=== PATIENT | female | born 1970 | race Caucasian/White ===

== ENCOUNTER 2017-11-11 14:00 | Outpatient (RCR) | payer BC, OTHER, SELFPAY | END 2017-12-14 14:54 | disposition home or self-care (01) | LOC: OT 14:00 | PROVIDERS: Family Provider Nurse Practitioner Family; PCP Nurse Practitioner Family; Visit Provider Orthopaedic Surgery | DX: Z98.890 Other specified postprocedural states (principal) | CPT/HCPCS: 97014; 97110; 97140; 97163; 97164; 97165; G0283 ==

== ENCOUNTER → 2019-11-04 15:04 | Outpatient (CLI) | payer BC, SELFPAY ==
--- NOTE | 2019-11-04 | CA_ITS ---
APPROVED REPORT Left Lower Extremity Venous Study for DVT. Schedule Analyst: KAYLEE Indications Lower Extremity Pain: Lower Extremity Edema: Left Patient denies trauma. States she woke up Thursday10/31/19 with left leg pain and edema. She notes that most of her pain is in the popliteal fossa and popliteal region. Vein Imaging CFV (L): compressive, spontaneous, phasic, augmentation FEM (L): compressive, spontaneous, phasic, augmentation POP (L): compressive, spontaneous, phasic, augmentation PTV (L): Compressible GSV (L): compressive, spontaneous, phasic, augmentation SSV (L): Compressible Peroneals (L):Compressible GAS (L): Compressible Findings No evidence of DVT or superficial thrombophlebitis in the veins scanned of the left lower extremity. Conclusion No evidence of DVT or superficial thrombophlebitis in the veins scanned of the left lower extremity. Electronically signed by : Bernardo Herrera MD 11/04/2019 17:35:48
--- NOTE | 2019-11-04 15:42 | XR_ITS ---
PROCEDURE: XR KNEE LT 3V CLINICAL INDICATION: PAIN IN LEFT KNEE COMPARISON: KNEE3L KNEE-3 VIEWS-LT from 01/10/2015 FINDINGS: No fracture or dislocation. No lytic or blastic change. There is normal mineralization. There are mild osteoarthritic changes of the medial compartment. Other findings:None. IMPRESSION: Mild osteoarthritis otherwise negative Dictated by: Bernardo Herrera MD 11/04/2019 16:48 Electronically signed by Bernardo Herrera MD in [place] 11/04/2019 16:48
== END ==
PROVIDERS: PCP Nurse Practitioner Family; Visit Provider Nurse Practitioner Family
DX: M25.562 Pain in left knee (principal); M79.662 Pain in left lower leg
CPT/HCPCS: 73562; 93971

== ENCOUNTER → 2020-01-07 10:25 | Outpatient (CLI) | payer BC, SELFPAY ==
[2020-01-07 11:42] LABS: Basophils % 0.4 % (0.1-2.0); Eosinophils # 0.2 K/mm3 (0.0-0.4); Eosinophils % 3.4 % (0.1-12.0); Hematocrit 35.5 % (37.0-47.0); Hemoglobin 12.2 g/dL (12.2-16.2); Lymphocytes # 1.7 K/mm3 (0.7-4.5); Lymphocytes % 35.8 % (10-50); Mean Corpuscular HGB Conc 34.5 g/dL (31.8-35.4); Mean Corpuscular Hemoglobin 31.8 pg (27.0-31.2); Mean Corpuscular Volume 92.1 fl (81-99); Mean Platelet Volume 7.9 fl (7.4-10.4); Monocytes # 0.2 K/mm3 (0.1-1.0); Monocytes % 4.7 % (1.7-9.3); Neutrophils # 2.7 K/mm3 (1.8-7.8); Neutrophils % 55.7 % (37.0-80.0); Platelet Count 271 K/mm3 (142-424); Red Blood Count 3.85 M/mm3 (4.20-5.40); Red Cell Distribution Width 12.9 % (11.5-17.5); White Blood Count 4.9 K/mm3 (4.8-10.8)
[2020-01-07 13:03] LABS: Alanine Aminotransferase 15 U/L (12-78); Albumin Level 3.9 g/dl (3.5-5.0); Albumin/Globulin Ratio 1.5 (1.1-1.8); Alkaline Phosphatase 95 U/L (38-126); Anion Gap 10.4 mEq/L (5-15); Aspartate Amino Transferase 29 U/L (14-36); Bilirubin,Total 0.7 mg/dl (0.2-1.3); Blood Urea Nitrogen 11 mg/dl (7-17); Calcium 8.8 mg/dl (8.4-10.2); Carbon Dioxide 30 mmol/L (22.0-30.0); Chloride 102 mmol/L (98-107); Chol/HDL Ratio 3.1 (1-3.5); Cholesterol 197 mg/dl (140-200); Estimated Glomerular Filt Rate 106 ml/min (>60); GFR (African American) 128 ML/MIN (>60); Globulin 2.6 g/dL (1.3-3.2); Glucose 89 mg/dl (74-100); HDL Cholesterol 63 mg/dl (40-60); Potassium 4.4 mmoL/L (3.5-5.1); Sodium 138 mmol/L (136-145); Total Protein,Serum 6.5 g/dl (6.3-8.2); Triglycerides 53 mg/dl (30-150); VLDL Cholesterol 11 mg/dL (0-40)
[2020-01-07 13:14] LABS: Direct LDL Cholesterol 123.98 mg/dL (100-129)
[2020-01-07 13:33] LABS: Thyroid Stimulating Hormone 0.81 uIU/mL (0.465-4.68)
== END ==
PROVIDERS: Visit Provider Family Medicine
DX: I10 Essential (primary) hypertension (principal); R12 Heartburn
CPT/HCPCS: 36415; 80053; 80061; 84443; 85025

== ENCOUNTER 2021-01-23 18:28 | Emergency (ER) | payer BC, SELFPAY ==
[2021-01-23 18:30] VITALS: BP 142/98; PULSE 85; RESP 24; TEMP 36.7; O2SAT 98; BMI 37.1
--- NOTE | 2021-01-23 19:24 | HMH.EDGENADL ---
ED Disposition Condition on Discharge: Good Time of Disposition: 21:56 - Critical Care Critical Care Time: No <Carlos Vazquez - Last Filed: 01/23/21 21:52> Condition on Discharge: Good - Critical Care Critical Care Time: No <Ashutosh Porter - Last Filed: 01/25/21 08:34> Clinical Impression: COVID-19 Chest pain Qualifiers: Chest pain type: unspecified Qualified Code(s): R07.9 - Chest pain, unspecified Disposition: Home, Self-Care Instructions: DI for Headache, DI for COVID-19 (Suspected or Confirmed ) Additional Instructions: Your course of illness may be short by the antibody infusion however you should expect to have symptoms for 7 to 8 days potentially as long as 12 days total. Please continue to treat your symptoms with Tylenol and ibuprofen use the Zofran as needed for nausea and stay well-hydrated. Prescriptions: Ondansetron [Zofran 4mg ODT] 4 mg PO TIDP PRN 3 Days #9 tab PRN Reason: Nausea Transmission Status: Received by [id number] Referrals: Eliza Newby [Primary Care Provider] - Attestation: On 01/23/21, the high probability of a clinically significant, sudden or life threatening deterioration of the following system(s) required my full and direct attention, intervention and personal management. The time I documented below is in addition to time spent performing reported procedures but includes the following listed in this critical care notation. Medical Decision Making - Lab Data Result diagrams: 01/23/21 20:20 01/23/21 20:20 <Carlos Vazquez - Last Filed: 01/23/21 21:52> - Medical Records Medical records reviewed: Yes: I reviewed the patient's medical records. - [place] Inquiry Pt receiving controlled substance: No - Lab Data Result diagrams: 01/23/21 20:20 01/23/21 20:20 <Ashutosh Porter - Last Filed: 01/25/21 08:34> Vital Signs: 01/23/21 18:30 01/23/21 22:09 Temperature 98.0 F 98.6 F Temperature Source Oral Oral Pulse Rate 85 Pulse Rate [Left Radial] 85 Respiratory Rate 24 20 Blood Pressure 126/84 Blood Pressure [Right Arm] 142/98 H Blood Pressure Mean [Right Arm] 112 Blood Pressure Source Automatic Cuff Blood Pressure Source [Right Arm] Automatic Cuff Blood Pressure Position Sitting Blood Pressure Position [Right Arm] Sitting 02 Sat by Pulse Oximetry 98 Oxygen Delivery Method Room Air Room Air - Lab Data Lab Results 01/23/21 20:20: WBC 6.7, RBC 4.48, Hgb 14.2, Hct 42.1, MCV 93.9, MCH 31.7 H, MCHC 33.8, RDW 12.7, Plt Count 284, MPV 8.3, Neut % (Auto) 64.6, Lymph % (Auto) 30.5, [place] % (Auto) 4.0, Eos % (Auto) 0.3, Baso % (Auto) 0.5, Neut # (Auto) 4.3, Lymph # (Auto) 2.1, [place] # (Auto) 0.3, Eos # (Auto) 0.0, Baso # (Auto) 0.0 01/23/21 20:20: Sodium 143, Potassium 4.0, Chloride 104, Carbon Dioxide 30, Anion Gap 13.0, BUN 14, Creatinine 0.60, Estimated Creat Clear 183, Estimated GFR 105, Est GFR ( Amer) 128, Glucose 110 H, Calcium 9.1, Troponin I < 0.01 Orders (Tests/Meds): ED MEDICATIONS Discontinued Medications Generic Name Dose Route Start Last Admin Trade Name Davidson PRN Reason Stop Dose Admin Ketorolac Tromethamine 15 mg 01/23/21 21:56 01/23/21 21:57 Ketorolac 30mg/Ml Vial IV 01/23/21 21:57 15 mg ONCE ONE Administration Medical Decision Narrative: Assumed the care of this patient who is well-appearing and unfortunately was told that her symptoms would resolve in 24 hours after antibody infusion which is absolutely impossible. She was updated on her true expected course of illness. Her chest x-ray is unrevealing of in this pleuritic chest pain is not acute has been going on for several days. Labs are otherwise nonactionable she was given Toradol 50 mg IV for pain and discharged home in good condition with appropriate return precautions. (Carlos Vazquez) Patient is a 50-year-old female presents the ED today for Covid related concerns, headache, over 19 related concerns of chest pain. Differential diagnosi
--- NOTE | 2021-01-23 19:27 | XR_ITS ---
PROCEDURE INFORMATION: Exam: XR Chest Exam date and time: 01/23/2021 7:27 PM Age: 50 years old Clinical indication: Chest wall pain; Additional info: Chest pain TECHNIQUE: Imaging protocol: XR of the chest. Views: 1 view. COMPARISON: No relevant prior studies available. FINDINGS: Lungs: Bilateral patchy ground-glass and consolidative airspace opacities. No appreciable pulmonary edema. Pleural spaces: No pleural effusion. No pneumothorax. Heart/Mediastinum: Cardiomediastinal silouhette is within normal limits. Bones/joints: Multiple chronic appearing rib fracture deformities on the left. No acute osseous abnormality. Soft tissues: Unremarkable. IMPRESSION: Bilateral patchy airspace opacities, concerning for multifocal pneumonia. Please see comments below. COMMENTS: Pulmonary findings described above are compatible with commonly reported imaging features of COVID-19 pneumonia. Other processes such as other viral pneumonias (i.e. influenza), organizing pneumonia, drug toxicity and connective tissue disease can cause a similar imaging pattern. (Reference: Arnaldo) REFERENCES: Arnaldo Schuster et al., [employer] Society of [place] Expert Consensus Statement on Reporting Chest CT Findings Related to COVID-19. Endorsed by the Society of [employer] Radiology, the [place] [employer], and [employer]NA. Published August 17, 2019.
[2021-01-23 20:30] LABS: Basophils % 0.5 % (0.1-2.0); Eosinophils % 0.3 % (0.1-12.0); Hematocrit 42.1 % (37.0-47.0); Hemoglobin 14.2 g/dL (12.2-16.2); Lymphocytes # 2.1 K/mm3 (0.7-4.5); Lymphocytes % 30.5 % (10-50); Mean Corpuscular HGB Conc 33.8 g/dL (31.8-35.4); Mean Corpuscular Hemoglobin 31.7 pg (27.0-31.2); Mean Corpuscular Volume 93.9 fl (81-99); Mean Platelet Volume 8.3 fl (7.4-10.4); Monocytes # 0.3 K/mm3 (0.1-1.0); Neutrophils # 4.3 K/mm3 (1.8-7.8); Neutrophils % 64.6 % (37.0-80.0); Platelet Count 284 K/mm3 (142-424); Red Blood Count 4.48 M/mm3 (4.20-5.40); Red Cell Distribution Width 12.7 % (11.5-17.5); White Blood Count 6.7 K/mm3 (4.8-10.8)
[2021-01-23 20:44] LABS: Chloride 104 mmol/L (98-107); Sodium 143 mmol/L (136-145)
[2021-01-23 20:48] LABS: Blood Urea Nitrogen 14 mg/dl (7-17); Calcium 9.1 mg/dl (8.4-10.2); Carbon Dioxide 30 mmol/L (22.0-30.0); Creatinine Clearance Estimated 183 mL/min (50-200); Estimated Glomerular Filt Rate 105 ml/min (>60); GFR (African American) 128 ML/MIN (>60); Glucose 110 mg/dl (74-100)
[2021-01-23 21:00] LABS: Troponin I < 0.01 ng/ml (0.00-0.034)
[2021-01-23 22:09] VITALS: BP 126/84; PULSE 85; RESP 20; TEMP 37; O2SAT 97
== END 2021-01-23 22:11 | disposition home or self-care (01) ==
PROVIDERS: Emergency Provider Student in an Organized Health Care Education/Training Program; PCP Nurse Practitioner Family
DX: U07.1 COVID-19 (principal)
CPT/HCPCS: 71045; 80048; 84484; 85025; 99282

== ENCOUNTER 2024-06-30 10:45 | Outpatient (CLI) | payer OTHER, SELFPAY ==
[2024-07-04 01:35] LABS: Pancreatic Elastase, Fecal >800 (>200)
== END 2024-06-30 23:59 | disposition home or self-care (01) ==
LOC: LAB 10:45
PROVIDERS: PCP Nurse Practitioner Family; Visit Provider Internal Medicine Gastroenterology
DX: R14.0 Abdominal distension (gaseous) (principal); R19.7 Diarrhea, unspecified
CPT/HCPCS: 82656